=== PATIENT | female | born 1985 | race Two or more races ===

== ENCOUNTER 2018-06-19 11:16 | Outpatient (CLI) | payer MEDICAID ==
[2018-06-19 13:11] LABS: ADD MAN DIFF? NO
[2018-06-19 13:13] LABS: BASOPHILS % 0.5 % (0.0-2.0); EOSINOPHILS % 0.3 % (0.0-7.0); HEMATOCRIT 37.1 % (37.0-47.0); HEMOGLOBIN 12.5 g/dl (12.0-16.0); LYMPHOCYTES # 1.5 10^3/ul (0.8-2.9); LYMPHOCYTES % 19.3 % (15.0-51.0); MEAN CORPUSCULAR HEMOGLOBIN 29.1 pg (29.0-33.0); MEAN CORPUSCULAR HGB CONC 33.7 g/dl (32.0-37.0); MEAN CORPUSCULAR VOLUME 86.3 fl (82.0-101.0); MEAN PLATELET VOLUME 9.9 fl (7.4-10.4); MONOCYTE # 0.8 10^3/ul (0.3-0.9); MONOCYTES % 10.6 % (0.0-11.0); NEUTROPHIL # 5.3 10^3/ul (1.6-7.5); NEUTROPHILS % 68.8 % (39.0-77.0); PLATELET COUNT 253 10^3/UL (140-415); RED CELL DISTRIBUTION WIDTH 13.3 % (11.5-14.5)
[2018-06-19 13:13] LABS: WHITE BLOOD COUNT 7.7 10^3/ul (4.8-10.8)
[2018-06-19 13:14] LABS: ADD UMIC NO; UR ASCORBIC ACID NEGATIVE (NEGATIVE); UR BACTERIA FEW /HPF (NONE SEEN); UR BILIRUBIN (Dip) NEGATIVE (NEGATIVE); UR BLOOD (Dip) NEGATIVE (NEGATIVE); UR CLARITY SLIGHTLY CLOUDY (CLEAR); UR COLOR AMBER (YELLOW); UR GLUCOSE (Dip) NEGATIVE (NEGATIVE); UR KETONES (Dip) NEGATIVE (NEGATIVE); UR LEUKOCYTE ESTERASE (Dip) NEGATIVE Leu/ul (NEGATIVE); UR MUCUS FEW /HPF (NONE SEEN); UR NITRITE (Dip) NEGATIVE (NEGATIVE); UR RBC 2 /HPF (0-5); UR SQUAMOUS EPITHELIAL CELL FEW /HPF (FEW); UR TOTAL PROTEIN (Dip) NEGATIVE (NEGATIVE); UR UROBILINOGEN (Dip) 1+ mg/dL (NEGATIVE); UR WBC 2 /HPF (0-5)
[2018-06-19 13:46] LABS: ALANINE AMINOTRANSFERASE 178 IU/L (13-69); ALBUMIN/GLOBULIN RATIO 1.33; ALKALINE PHOSPHATASE 108 IU/L (42-121); ANION GAP 8 (5-13); ASPARTATE AMINO TRANSFERASE 78 IU/L (15-46); BILIRUBIN,INDIRECT 0.3 mg/dl (0-1.1); BILIRUBIN,TOTAL 0.3 mg/dl (0.2-1.3); BLOOD UREA NITROGEN 9 mg/dl (7-20); CALCIUM 10.2 mg/dl (8.4-10.2); CARBON DIOXIDE 23 mmol/L (21-31); CHLORIDE 107 mmol/L (97-110); CREATININE 0.45 mg/dl (0.44-1.00); Estimated GFR > 60 mL/min (>60); GLUCOSE 97 mg/dl (70-220); SODIUM 138 mmol/L (135-144); URIC ACID 4.3 mg/dl (3.1-7.9)
== END 2018-06-19 17:20 | disposition home or self-care (01) ==
LOC: OBT 11:16 → L-D 11:16 → OBT 17:20
DX: O26.892 Other specified pregnancy related conditions, second trimester (principal); R10.13 Epigastric pain; R74.0 Nonspecific elevation of levels of transaminase and lactic acid dehydrogenase [LDH]; Z3A.21 21 weeks gestation of pregnancy
CPT/HCPCS: 80053; 81001; 81003; 84560; 85025

== ENCOUNTER 2018-10-27 08:04 | Inpatient (IN) | payer MEDICAID ==
[2018-10-27] MEDS ORDERED: LACTATED RINGER'S 1,000 ML IV (08:22)
[2018-10-27] MEDS ORDERED: METHYLERGONOVINE 0.2 MG INJ IM (08:30)
[2018-10-27] MEDS ORDERED: IBUPROFEN 600 MG TAB PO (08:30)
[2018-10-27] MEDS ORDERED: LIDOCAINE 1% (MPF) 30 ML INJ INJ (08:30)
[2018-10-27] MEDS ORDERED: CARBOPROST 250 MCG INJ IM (08:30)
[2018-10-27] MEDS ORDERED: BUTORPHANOL 2 MG INJ IV (08:30)
[2018-10-27] MEDS ORDERED: OXYTOCIN 30 UNITS/LR 500 ML IV ×3 (08:30)
[2018-10-27] MEDS: LACTATED RINGER'S 1,000 ML IV ×3 (08:54→20:45)
[2018-10-27 09:25] LABS: ADD MAN DIFF? NO
[2018-10-27 09:28] LABS: BASOPHILS % 0.4 % (0.0-2.0); EOSINOPHILS % 0.5 % (0.0-7.0); HEMATOCRIT 41.6 % (37.0-47.0); HEMOGLOBIN 13.9 g/dl (12.0-16.0); LYMPHOCYTES # 1.6 10^3/ul (0.8-2.9); LYMPHOCYTES % 21.6 % (15.0-51.0); MEAN CORPUSCULAR HEMOGLOBIN 28.4 pg (29.0-33.0); MEAN CORPUSCULAR HGB CONC 33.4 g/dl (32.0-37.0); MEAN CORPUSCULAR VOLUME 85.1 fl (82.0-101.0); MEAN PLATELET VOLUME 10.9 fl (7.4-10.4); MONOCYTE # 0.8 10^3/ul (0.3-0.9); MONOCYTES % 9.9 % (0.0-11.0); NEUTROPHIL # 5.1 10^3/ul (1.6-7.5); NEUTROPHILS % 67.2 % (39.0-77.0); PLATELET COUNT 228 10^3/UL (140-415); RED BLOOD COUNT 4.89 10^6/ul (4.20-5.40); RED CELL DISTRIBUTION WIDTH 13.6 % (11.5-14.5)
[2018-10-27 09:28] LABS: WHITE BLOOD COUNT 7.6 10^3/ul (4.8-10.8)
[2018-10-27 09:35] LABS: ADD UMIC YES; UR ASCORBIC ACID NEGATIVE (NEGATIVE); UR BACTERIA FEW /HPF (NONE SEEN); UR BILIRUBIN (Dip) NEGATIVE (NEGATIVE); UR BLOOD (Dip) 3+ mg/dL (NEGATIVE); UR CLARITY CLOUDY (CLEAR); UR COLOR RED (YELLOW); UR GLUCOSE (Dip) NEGATIVE (NEGATIVE); UR KETONES (Dip) NEGATIVE (NEGATIVE); UR LEUKOCYTE ESTERASE (Dip) NEGATIVE Leu/ul (NEGATIVE); UR MUCUS FEW /HPF (NONE SEEN); UR NITRITE (Dip) NEGATIVE (NEGATIVE); UR RBC 38 /HPF (0-5); UR SPECIFIC GRAVITY (Dip) 1.004 (1.003-1.030); UR SQUAMOUS EPITHELIAL CELL MANY /HPF (FEW); UR TOTAL PROTEIN (Dip) 1+ mg/dl (NEGATIVE); UR UROBILINOGEN (Dip) NEGATIVE (NEGATIVE); UR WBC 9 /HPF (0-5)
[2018-10-27 09:49] LABS: INR 0.89; PROTIME 12.1 Sec (11.9-14.9); PT RATIO 0.9
[2018-10-27 09:50] LABS: PARTIAL THROMBOPLASTIN TIME 25.3 Sec (23.0-35.0)
[2018-10-27 09:51] LABS: ALANINE AMINOTRANSFERASE 18 IU/L (13-69); ALBUMIN 3.8 g/dl (3.3-4.9); ALBUMIN/GLOBULIN RATIO 1.22; ALKALINE PHOSPHATASE 284 IU/L (42-121); ANION GAP 10 (5-13); ASPARTATE AMINO TRANSFERASE 19 IU/L (15-46); BILIRUBIN,INDIRECT 0.1 mg/dl (0-1.1); BILIRUBIN,TOTAL 0.1 mg/dl (0.2-1.3); BLOOD UREA NITROGEN 10 mg/dl (7-20); CALCIUM 9.8 mg/dl (8.4-10.2); CARBON DIOXIDE 22 mmol/L (21-31); CHLORIDE 107 mmol/L (97-110); CREATININE 0.46 mg/dl (0.44-1.00); Estimated GFR > 60 mL/min (>60); GLUCOSE 85 mg/dl (70-220); POTASSIUM 4.4 mmol/L (3.5-5.1); SODIUM 139 mmol/L (135-144); TOTAL PROTEIN 6.9 g/dl (6.1-8.1)
[2018-10-27 09:52] LABS: URIC ACID 5.7 mg/dl (3.1-7.9)
[2018-10-27] MEDS: MISOPROSTOL 50 MCG CAPSULE PO ×3 (10:42→17:00)
[2018-10-27 19:47] LABS: RAPID PLASMA REAGIN NONREACTIVE (NR)
[2018-10-27] MEDS: AMPICILLIN 2 GM/NS (PMX) 100 ML IVPB (20:45)
[2018-10-28] MEDS: OXYTOCIN 30 UNITS/LR 500 ML IV (00:32)
[2018-10-28] MEDS: AMPICILLIN 1 GM/NS (PMX) 50 ML IVPB ×2 (00:49→05:06)
[2018-10-28] MEDS: MISOPROSTOL 200 MCG TAB PR (07:36)
[2018-10-28] MEDS: FENTAnyl 50 MCG/ML VIAL IV (07:48)
[2018-10-28] MEDS: FAMOTIDINE 20 MG INJ IV (08:21)
[2018-10-28] MEDS ORDERED: MAGNESIUM HYDROXIDE 30ML CUP PO (09:00)
[2018-10-28] MEDS: LACTATED RINGER'S 1,000 ML IV* ×2 (09:43→17:43)
[2018-10-28] MEDS: DEXTROSE 5%-LR 1,000 ML IV ×2 (09:43→11:26)
[2018-10-28] MEDS ORDERED: METHYLERGONOVINE 0.2 MG INJ IM (10:00)
[2018-10-28] MEDS ORDERED: OXYCODONE/ASPIRIN (4.88/325) TAB PO (10:00)
[2018-10-28] MEDS ORDERED: OXYTOCIN 30 UNITS/LR 500 ML IV (10:00)
[2018-10-28] MEDS ORDERED: MISOPROSTOL 200 MCG TAB PR (10:00)
[2018-10-28] MEDS ORDERED: ZOLPIDEM 5 MG TAB PO (10:00)
[2018-10-28] MEDS ORDERED: ONDANSETRON 4 MG INJ IV (10:00)
[2018-10-28] MEDS ORDERED: DIPHENHYDRAMINE 50 MG INJ IV (10:00)
[2018-10-28] MEDS ORDERED: SENNA/DOCUSATE NA (8.6MG/50MG) TAB PO (10:00)
[2018-10-28] MEDS ORDERED: CARBOPROST 250 MCG INJ IM (10:00)
[2018-10-28] MEDS ORDERED: DIBUCAINE 1% 30 GM OINT TOP (10:00)
[2018-10-28] MEDS: WITCH HAZEL/GLYCERIN PAD PR (11:24)
[2018-10-28] MEDS: BENZOCAINE 20% 56 ML SPRAY TOP (11:24)
[2018-10-28] MEDS: IBUPROFEN 600 MG TAB PO ×2 (11:25→18:00)
[2018-10-28] MEDS: ACETAMINOPHEN 325 MG TAB PO ×2 (15:27→21:34)
[2018-10-29] MEDS: LACTATED RINGER'S 1,000 ML IV* ×3 (01:43→17:43)
[2018-10-29] MEDS: DEXTROSE 5%-LR 1,000 ML IV ×3 (01:43→17:43)
[2018-10-29] MEDS: IBUPROFEN 600 MG TAB PO ×4 (06:00→17:51)
[2018-10-29] MEDS: FAMOTIDINE 20 MG TAB PO ×2 (06:06→20:38)
[2018-10-29] MEDS: LANOLIN HPA 1 PKT TOP (08:41)
[2018-10-29] MEDS: BENZOCAINE 20% 56 ML SPRAY TOP ×2 (08:42→20:38)
[2018-10-29] MEDS: WITCH HAZEL/GLYCERIN PAD PR ×2 (08:42→20:38)
[2018-10-29 08:51] LABS: ADD MAN DIFF? NO
[2018-10-29 08:54] LABS: WHITE BLOOD COUNT 9.7 10^3/ul (4.8-10.8)
[2018-10-29 08:54] LABS: BASOPHILS % 0.3 % (0.0-2.0); EOSINOPHILS # 0.1 10^3/ul (0.0-0.5); EOSINOPHILS % 0.8 % (0.0-7.0); HEMATOCRIT 30.4 % (37.0-47.0); HEMOGLOBIN 10.1 g/dl (12.0-16.0); LYMPHOCYTES # 2.1 10^3/ul (0.8-2.9); LYMPHOCYTES % 21.9 % (15.0-51.0); MEAN CORPUSCULAR HEMOGLOBIN 29.4 pg (29.0-33.0); MEAN CORPUSCULAR HGB CONC 33.2 g/dl (32.0-37.0); MEAN CORPUSCULAR VOLUME 88.4 fl (82.0-101.0); MEAN PLATELET VOLUME 10.3 fl (7.4-10.4); MONOCYTE # 0.9 10^3/ul (0.3-0.9); MONOCYTES % 9.2 % (0.0-11.0); NEUTROPHIL # 6.5 10^3/ul (1.6-7.5); NEUTROPHILS % 67.3 % (39.0-77.0); PLATELET COUNT 180 10^3/UL (140-415); RED BLOOD COUNT 3.44 10^6/ul (4.20-5.40); RED CELL DISTRIBUTION WIDTH 13.7 % (11.5-14.5)
[2018-10-30] MEDS: DEXTROSE 5%-LR 1,000 ML IV (00:32)
[2018-10-30] MEDS: LACTATED RINGER'S 1,000 ML IV* (00:33)
[2018-10-30] MEDS: IBUPROFEN 600 MG TAB PO ×3 (06:00→12:00)
[2018-10-30] MEDS: DIPHTH/TET/ACEL PERTUSS (ADULT) 0.5 ML VIAL IM* (08:01)
[2018-10-30] MEDS: MEASLES,MUMPS,RUBELLA VACCINE INJ SC* (08:02)
[2018-10-30] MEDS: FAMOTIDINE 20 MG TAB PO (08:47)
[2018-10-30] MEDS: WITCH HAZEL/GLYCERIN PAD PR (08:52)
== END 2018-10-30 13:30 | disposition home or self-care (01) | DRG 768 ==
LOC: OBT 08:04 → PP1 10-28 09:52 → L-D 08:04 → OBT 08:15 → L-D 08:15
PROVIDERS: Obstetrics & Gynecology
PROC: 4A1HXCZ Monitoring of Products of Conception, Cardiac Rate, External Approach (ICD-10-PCS; 2018-10-27)
PROC: 10E0XZZ Delivery of Products of Conception, External Approach (ICD-10-PCS; principal; 2018-10-28)
PROC: 0DQR0ZZ Repair Anal Sphincter, Open Approach (ICD-10-PCS; 2018-10-28)
DX: O13.4 Gestational [pregnancy-induced] hypertension without significant proteinuria, complicating childbirth (principal); Z37.0 Single live birth; Z3A.39 39 weeks gestation of pregnancy; O70.20 Third degree perineal laceration during delivery, unspecified
CPT/HCPCS: 76815; 80053; 81001; 84560; 85025; 85610; 85730; 86592; 86850; 86900; 86901